=== PATIENT | male | born 1985 ===

== ENCOUNTER 2019-01-20 09:11 | Emergency (ER) | payer SELFPAY ==
[2019-01-20] MEDS ORDERED: Adacel (T-DAP) 0.5 ML SYRINGE ONE (09:37)
== END 2019-01-20 10:00 | disposition home or self-care (01) ==
LOC: BURERS 09:11
DX: L03.115 Cellulitis of right lower limb (principal); L03.116 Cellulitis of left lower limb; F17.210 Nicotine dependence, cigarettes, uncomplicated
CPT/HCPCS: 90471; 90715